=== PATIENT | male | born 1935 | race Caucasian/White ===

== ENCOUNTER 2018-05-14 13:37 | Inpatient (IN) | payer MEDICARE, OTHER ==
[~2018-05-14] VITALS: Ht 177.8 cm; Wt 108.4 kg
[2018-05-14 13:41] VITALS: BP 158/56
[2018-05-14 14:16] LABS: ABSOLUTE EOSINOPHILS 0.2 thou/uL (0.0-0.7); ABSOLUTE MONOCYTES 0.7 thou/uL (0.0-1.2); ABSOLUTE NEUTROPHILS 4.8 thou/uL (1.6-8.1); BASOPHILS 0.5 %; EOSINOPHILS 2.8 %; HEMATOCRIT 39.3 % (42.0-52.0); LYMPHOCYTES 14.6 %; MCH 28.4 pg (26.0-34.0); MCHC 33.2 g/dL (28.0-37.0); MCV 85.8 fL (80.0-100.0); NUCLEATED RBCS 0 /100WBC; PLATELET COUNT* 152 thou/uL (150-400); POLYS 71.1 %; RBC 4.59 mil/uL (4.50-6.00); RDW-CV 15.7 % (10.5-14.5); WBC 6.7 thou/uL (4.0-11.0)
[2018-05-14 14:34] LABS: CALCIUM 8.8 mg/dL (8.5-10.1); CREATININE 1.2 mg/dL (0.6-1.3); POTASSIUM 4.1 mmol/L (3.5-5.1)
[2018-05-14 14:37] LABS: ALBUMIN 2.8 g/dL (3.4-5.0); TOTAL BILIRUBIN 0.7 mg/dL (<0.1-1.0); TOTAL PROTEIN 6.6 g/dL (6.4-8.2); URIC ACID* 6.7 mg/dL (2.6-7.2)
[2018-05-14 15:24] LABS: ESR (SEDRATE) 39 mm/hr (0-20)
[2018-05-14 16:06] VITALS: BP 102/44
[2018-05-14 16:23] VITALS: BP 139/65
--- NOTE | 2018-05-14 18:14 | NUR ---
ALERT AND ORIENTED X4. UP WITH ASSIST X1 WITH WALKER AND GAIT BELT TO COMMODE. IV IS PATENT AND SALINE LOCKED. PAIN BEING MANAGED WITH PO PAIN MEDICATION GIVEN IN ER. DENIES NAUSEA. VSS ON ROOM AIR. HOURLY ROUNDS HAVE BEEN MAINTAINED THROUGHOUT SHIFT. CALL LIGHT IS WITHIN REACH. NURSING WILL CONTINUE TO MONITOR.
[2018-05-14] MEDS ORDERED: COREG6.25 MG PO (19:44)
[2018-05-14] MEDS ORDERED: FLOMAX0.4 MG PO (19:45)
[2018-05-14] MEDS ORDERED: COUMADIN 5 MG TA5 M1 PO (19:45)
[2018-05-14] MEDS ORDERED: ARICEPT 5 MG TAB5 MG PO (19:45)
[2018-05-14] MEDS ORDERED: NOVOLOG100 UNIT/1 SUBQ (19:46)
[2018-05-14] MEDS ORDERED: COLCHICINE0.6 M1 PO (19:46)
[2018-05-14] MEDS ORDERED: LEVEMIR SUBQ (19:47)
[2018-05-14] MEDS ORDERED: MELATIN3 MG PO (19:48)
[2018-05-14] MEDS ORDERED: SINEMET 25-1001 EAC1 PO (19:48)
[2018-05-14] MEDS ORDERED: FISH OIL 1,001000 M2 PO (19:48)
[2018-05-14] MEDS ORDERED: COLACE100 MG PO (19:49)
[2018-05-14 19:51] LABS: BF RBC 46894 /mm3; TOTAL CELL COUNT 8832 /mm3
[2018-05-14 19:52] LABS: COLOR RED; TOTAL VOLUME 3 ml
[2018-05-14 19:53] LABS: CLARITY CLOUDY
[2018-05-14 20:24] LABS: BF LYMPHOCYTES 1 %; BF MONOCYTES 30 %; BF POLYS 69 %; BF TISSUE 2 /100 WBC
[2018-05-14 20:25] LABS: SOURCE RIGHT ANKLE
[2018-05-14 20:30] VITALS: BP 148/49
--- NOTE | 2018-05-15 04:59 | NUR ---
PT SLEPT AT INTERVALS DURING THE NIGHT, PLEASANT, UP SBA AND WALKER TO THE BATHROOM, PT ACCIDENTALLY TOOK OUT IV WHILE SLEEPING, NEW IV PLACED THIS AM, RIGHT ANKLE BARBARA WRAPPED C/D/I, CALL LIGHT IN REACH, BED ALARM ON FOR SAFETY, WILL CONTINUE TO MONITOR
[2018-05-15 07:40] VITALS: BP 154/72
[2018-05-15 16:15] VITALS: BP 136/56
[2018-05-15] MEDS ORDERED: NORCO 5-325 TA1 EACH PO (17:30)
[2018-05-15 17:32] VITALS: BP 136/56
--- NOTE | 2018-05-15 18:03 | NUR ---
PATIENT A&OX4, ROOM AIR, IV RIGHT HAND FLUIDS INFUSSING, IV DISCONTINUED. UP WITH ASSISTX1, STEADY GAIT. PATIENT DISCHARGED TODAY, REVIEWED DISCHARGE PAPERWORK WITH SPOUSE AT BEDSIDE. ALL QUESTIONS AND CONCERNS ANSWERED. PATIENT LEFT UNIT AT 1800 VIA W/C WITH ALL BELONGINGS. NOTHING LEFT BEHIND. PATIENT W/C TO CAR. SPOUSE EXPRESSES CONCERN WITH PATIENT'S MED REC NOT BEING COMPLETED WHEN PATIENT WAS ADMITTED.
[2018-05-19 23:09] LABS: BF CRYSTALS Present (None seen)
[2018-05-20 12:19] LABS: SOURCE SYNOVIAL FLUID
== END 2018-05-15 18:00 | disposition home or self-care (01) | DRG 554 ==
LOC: M.ERS 13:37 → M.TBA-ER 15:08 → M.ORTHSURG 15:52
PROVIDERS: Orthopaedic Surgery; Physician Assistant; ADMIT Internal Medicine
DX: M10.9 Gout, unspecified (principal); E44.0 Moderate protein-calorie malnutrition; M19.071 Primary osteoarthritis, right ankle and foot; E11.9 Type 2 diabetes mellitus without complications; I10 Essential (primary) hypertension; M25.571 Pain in right ankle and joints of right foot; F03.90 Unspecified dementia, unspecified severity, without behavioral disturbance, psychotic disturbance, mood disturbance, and anxiety; E78.00 Pure hypercholesterolemia, unspecified; L53.9 Erythematous condition, unspecified; Z79.899 Other long term (current) drug therapy